=== PATIENT | male | born 1995 | race Two or more races ===

== ENCOUNTER 2016-11-10 11:38 | Emergency (ER) | payer OTHER ==
[2016-11-10 11:44] VITALS: RESP 16
--- NOTE | 2016-11-10 12:21 | EDPHY ---
HPI/HX/ROS/PE/MDM Narrative: CHIEF COMPLAINT: Chest pain HPI: The patient is a 21 y/o male complaining of episodic left-sided chest pain for the last month. He was evaluated for his symptoms at [facility] a few weeks ago where they performed an EKG, labs, and chest x-ray. The patient reports everything was normal and they referred him to a heavy equipment operating engineer, which he has not done yet. Each episode lasts about 30 minutes and he describes his symptoms more as pressure. His discomfort is aggravated by lying flat and smoking and is non-pleuritic in nature. His symptoms worsened last night and he was unable to sleep. He denies associated dyspnea, fever, abdominal pain, recent illness, or recent trauma. He denies any current pain. He also notes he's had a constantly swollen, non-painful cervical lymph node since April 2016 that he has already been evaluated for and referred to surgeon. REVIEW OF SYSTEMS: Aside from elements discussed in the HPI, a comprehensive 10-point review of systems was reviewed and is negative. PMH: Denies. Denies familial history of cardiac disease. SOCIAL HISTORY: [employer] student. Denies drug abuse. Single. PHYSICAL EXAM: General:Patient is alert, in no acute distress. ENT:Eyes are normal to inspection. ENT inspection normal. Neck: Normal inspection. Full range of motion. No lymphadenopathy. Respiratory:No respiratory distress. Breath sounds normal bilaterally. Cardiovascular: Regular rate and rhythm. Strong peripheral pulses. Normal cap refill. Abdomen:The abdomen is nontender to palpation. There are no peritoneal signs. Back: Normal to inspection. No tenderness to palpation. Skin: Normal color. No rash. Warm and dry. Extremities: Normal appearance. Full range of motion. Neuro: Oriented x3. Normal motor function. Normal sensory function. ED Course: This is a normally healthy 21 y/o male who presents with a 1-month history of episodic chest pain, worse last night. He has already been evaluated at [facility] 3 weeks ago for his symptoms and reports all his results came back normal so he was referred to a heavy equipment operating engineer, which he has not follow up with. His exam is unremarkable. IV established. Labs drawn including CBC, CHEM, troponin. Patient placed on school lunch monitor. The 12 lead EKG was interpreted by myself. Sinus rhythm rate 57. See hard copy and/or "tracemaster" electronic copy for interpretation. Chest x-ray negative. Labs unremarkable. Discussed findings with the patient and recommended outpatient cardiology follow up. Return precautions given. He is comfortable with this plan. MDM: This is a young healthy male with atypical chest pain, no cardiac or PE risk factors, and a negative workup. I think he is safe for outpatient workup and have referred him to Cardiology. - Data Points Imaging Results: Imaging Impressions Chest X-Ray 11/10/16 12:18 Impression: Possible airways disease. Imaging: I viewed and interpreted images myself Laboratory Results: Laboratory Results 11/10/16 13:45 11/10/16 13:45 11/10/16 11/10/16 13:45 13:45 WBC 7.19 10^3/uL 10^3/uL (3.80-9.50) RBC 5.30 10^6/uL 10^6/uL (4.40-6.38) Hgb 15.6 g/dL g/dL (13.7-17.5) Hct 45.6 % % (40.0-51.0) MCV 86.0 fL fL (81.5-99.8) MCH 29.4 pg pg (27.9-34.1) MCHC 34.2 g/dL g/dL (32.4-36.7) RDW 12.2 % % (11.5-15.2) Plt Count 184 10^3/uL 10^3/uL (150-400) MPV 11.3 fL fL (8.7-11.7) Neut % (Auto) 59.3 % % (39.3-74.2) Lymph % (Auto) 30.7 % % (15.0-45.0) [place] % (Auto) 7.1 % % (4.5-13.0) Eos % (Auto) 2.1 % % (0.6-7.6) Baso % (Auto) 0.4 % % (0.3-1.7) Nucleat RBC Rel Count 0.0 % % (0.0-0.2) Absolute Neuts (auto) 4.26 10^3/uL 10^3/uL (1.70-6.50) Absolute Lymphs (auto) 2.21 10^3/uL 10^3/uL (1.00-3.00) Absolute Monos (auto) 0.51 10^3/uL 10^3/uL (0.30-0.80) Absolute Eos (auto) 0.15 10^3/uL 10^3/uL (0.03-0.40) Absolute Basos (auto) 0.03 10^3/uL 10^3/uL (0.02-0.10) Absolute Nucleated RBC 0.00 10^3/uL 10^3/uL (0-0.01) Immature Gran % 0.4 % % (0.0-1.1) Immature Gran # 0.03 10^3/uL 10^3/uL (0.00-0.10) Sodium 141 mEq/L mEq/L (134-144) Potassium 4.6 mEq/L mEq/L (3.5-5.2) Chloride 104 mEq/L mEq/L (97-110) Carbon Dioxide 28 mEq/l mEq/l (22-31) Anion Gap 9 mEq/L mEq/L (8-16) BUN 14 mg/dL mg/dL (7-23) Creatinine 0.8 mg/dL mg/dL (0.7-1.3) Estimated GFR > 60 Glucose 84 mg/dL mg/dL (70-100) Calcium 9.7 mg/dL mg/dL (8.5-10.4) Troponin I < 0.012 ng/mL ng/mL (0-0.034) General Time Seen by Provider: 11/10/16 12:04 Initial Vital Signs: Initial Vital Signs Temperature (C) 36.5 C 11/10/16 11:41 Heart Rate 80 11/10/16 11:41 Respiratory Rate 16 11/10/16 11:41 Blood Pressure 143/54 H 11/10/16 11:41 O2 Sat (%) 98 11/10/16 11:41 Allergies/Adverse Reactions: No Known Allergies Allergy (Unverified 11/10/16 11:40) Home Medications: Medication Instructions Recorded NK [No Known Home Meds] 11/10/16 Departure - Departure Disposition: Home, Routine, Self-Care Clinical Impression: Chest pain Qualifiers: Chest pain type: other chest pain Qualified Code(s): R07.89 - Other chest pain Condition: Good Instructions: Chest Pain (ED) Additional Instructions: 1. Take 600mg ibuprofen every 6-8 hours for the next 3-4 days. 2. Follow up with a heavy equipment operating engineer this week. You've been referred to Dr. Calles. 3. Return to the ED for shortness of breath, severe or worsening pain, uncontrollable fever, or other worsening of condition. Referrals: NONE *PRIMARY CARE P,. [Primary Care Provider] - As per Instructions Magdi Calles MD [Medical Doctor] - As per Instructions Report Scribed for: Lencho Jones Report Scribed by: Shanthi Ibarra Date of Report: 11/10/16 Time of Report: 12:21 Physician Review and Approval Statement: Portions of this note were transcribed by an ED scribe. I personally performed the history, physical exam, and medical decision making; and confirm the accuracy of the information in the transcribed note.
--- NOTE | 2016-11-10 12:59 | CPEKG ---
Heart Rate: 57 RR Interval: 1053 P-R Interval: 188 QRSD Interval: 80 QT Interval: 380 QTC Interval: 370 P [place]: 11 QRS [place]: 48 T Wave [place]: 16 EKG Severity - NORMAL ECG - EKG Impression: SINUS RHYTHM Electronically Signed By: Berenice Glover 15-Nov-2016 13:47:10
[2016-11-10 13:58] LABS: % IMMATURE GRANULYOCYTES 0.4 % (0.0-1.1); ABSOLUTE IMMATURE GRANULOCYTES 0.03 10^3/uL (0.00-0.10); ADD DIFF? NO; ADD MORPH? NO; ADD SCAN? NO; ATYPICAL LYMPHOCYTE FLAG 0 (0-99); FRAGMENT RBC FLAG 0 (0-99); HEMATOCRIT 45.6 % (40.0-51.0); HEMOGLOBIN 15.6 g/dL (13.7-17.5); LEFT SHIFT FLG 0 (0-99); LIPEMIA HEMOLYSIS FLAG 90 (0-99); MEAN CELL HEMOGLOBIN 29.4 pg (27.9-34.1); MEAN CELL HEMOGLOBIN CONCENTR. 34.2 g/dL (32.4-36.7); MEAN PLATELET VOLUME 11.3 fL (8.7-11.7); PLATELET CLUMPS FLAG 0 (0-99); PLATELET COUNT 184 10^3/uL (150-400); RED CELL DISTRIBUTION WIDTH 12.2 % (11.5-15.2)
[2016-11-10 14:10] LABS: ANION GAP 9 mEq/L (8-16); CALCIUM 9.7 mg/dL (8.5-10.4); CARBON DIOXIDE 28 mEq/l (22-31); CHLORIDE 104 mEq/L (97-110); CREATININE 0.8 mg/dL (0.7-1.3); GLOMERULAR FILTRATION RATE > 60; GLUCOSE 84 mg/dL (70-100); POTASSIUM 4.6 mEq/L (3.5-5.2); SODIUM 141 mEq/L (134-144)
[2016-11-10 14:21] LABS: TROPONIN I < 0.012 ng/mL (0-0.034)
[2016-11-10 14:37] VITALS: BP 111/61; PULSE 64; TEMP 98.1; O2SAT 95
== END 2016-11-10 14:37 | disposition home or self-care (01) ==
DX: R07.89 Other chest pain (principal)